=== PATIENT | male | born 1990 | race Caucasian/White ===

== ENCOUNTER 2023-10-24 02:42 | Emergency (ER) | payer OTHER, SELFPAY ==
--- NOTE | 2023-10-24 | ECG_ITS ---
Test Reason : CHEST PAIN Blood Pressure : / mmHG Vent. Rate : 137 BPM Atrial Rate : 137 BPM P-R Int : 116 ms QRS Dur : 082 ms QT Int : 314 ms P-R-T Axes : 060 044 031 degrees QTc Int : 474 ms Sinus tachycardia Otherwise normal ECG When compared with ECG of 20-MAR-2019 04:24, Vent. rate has increased BY 51 BPM Referred By: Generic ED Physician Electronically Signed By:Carlos Eduardo Su
--- NOTE | ~2023-10-24 | XR_ITS ---
EXAMINATION: XR CHEST CLINICAL INFORMATION: Cough, chest pain COMPARISON: None available. TECHNIQUE: Frontal view of the chest was obtained. FINDINGS: The lungs are clear with no focal consolidation. No evidence of pneumothorax, pulmonary edema, or pleural effusions. The cardiomediastinal silhouette is unremarkable. No acute osseous findings. XR/XR chest 1V IMPRESSION: No acute cardiopulmonary findings.
[2023-10-24 02:44] VITALS: BP 198/108; PULSE 147; O2SAT 95
[2023-10-24 02:48] VITALS: BP 116/72; PULSE 135; RESP 21; TEMP 38.1; O2SAT 95; BMI 37.7
[2023-10-24 02:53] VITALS: PULSE 135
[2023-10-24 03:25] LABS: Basophils Absolute Auto 0.1 X10*3/uL (0.0-0.2); Basophils Percent Auto 0.5 % (0-2); Eosinophils Percent Auto 0.2 % (0-4); Hematocrit 41.8 % (42.0-52.0); Hemoglobin 14.4 g/dl (14.0-18.0); Imm Gran Abs Auto 0.07 X10*3/uL (0.00-0.03); Imm Gran Pct Auto 0.4 % (0.0-0.4); Lymphocytes Absolute Auto 1.7 X10*3/uL (1.2-4.9); MANUAL DIFF FLAG NO; Mean Corpuscular HGB Conc 34.4 g/dl (31.0-36.0); Mean Corpuscular Hemoglobin 27.6 pg (27.0-33.0); Mean Corpuscular Volume 80.1 fL (80.0-98.0); Mean Platelet Volume 10.5 fL (9.4-12.4); Monocytes Absolute Auto 0.9 X10*3/uL (0.1-1.2); Neutrophils Absolute Auto 15.6 x10*3/uL (2.0-8.3); Neutrophils Percent Auto 84.9 % (45-73); Platelet Count 337 X10*3/uL (160-400); Red Blood Count 5.22 X10*6/uL (4.60-5.80); Red Cell Distribution Width 12.1 % (11.0-16.0); White Blood Count 18.4 X10*3/uL (4.8-10.8)
--- NOTE | 2023-10-24 03:28 | ED_ITS ---
HPI - Anxiety General Chief Complaint: Arrhythmia/Palpitations Stated Complaint: anxiety Time Seen by Provider: 10/24/23 03:27 Source: patient Mode of arrival: ambulatory Limitations: no limitations History of Present Illness ED Provider: veronica PEREZ narrative: Patient's history of anxiety with increased stresses at home with anxiety taking medication not working comes here for increased anxiety and stress at home had palpitation with anxiety noted to have fever of 100.6 on arrival patient is unaware of this complaining of palpitation with heart rate in 135 range patient also complaining of sore throat for last 2- 3 days with dry cough Related Data Home Medications ?Medication ?Instructions ?Recorded ?Confirmed fluoxetine 40 mg capsule 40 mg PO DAILY 03/11/20 08/14/20 Previous Rx's ?Medication ?Instructions ?Recorded hydroxyzine HCl 50 mg tablet 50 mg PO TID 90 days #270 tabs 08/05/20 clonazepam 1 mg tablet 1 mg PO TID 30 days #90 tabs 09/29/20 amoxicillin 875 mg-potassium 1 tab PO BID #20 tabs 10/24/23 clavulanate 125 mg tablet ibuprofen 600 mg tablet 600 mg PO Q6H PRN fever or pain 10/24/23 #30 tabs Allergies Allergy/AdvReac Type Severity Reaction Status Date / Time No Known Allergies Allergy Verified 10/24/23 02:50 [No Known Allergies*] Review of Systems 2 Review of Systems: Yes all other systems are reviewed and are negative PMFSH Past Medical History Surgical History No pertinent past surgical history Family History Family History Father Depression with anxiety Chronic mental illness Mother Rheumatoid arthritis Maternal Grandmother Arthritis Maternal Grandfather Hypertension Social History Social History Alcohol intake: never Smoked in Last 30 Days: Yes e-Cigarette/Vaping Use: Currently Using Use of substances other than those prescribed or required for medical reasons: No Advance Directives: No Advance Directives Information Provided: Yes Do you have a plan to hurt others: No Plan Physical Exam 2 Vital Signs: Vital Signs: Last Vital Signs Temp 98.2 F 10/24/23 05:18 Pulse 111 H 10/24/23 05:18 Resp 16 10/24/23 05:18 BP 125/75 10/24/23 05:18 Pulse Ox 98 10/24/23 05:18 O2 Del Method Room Air 10/24/23 05:18 BMI result Body Mass Index 37.7 Appearance: Alert. Oriented X3. No acute distress. Anxious Eyes: PERRLA, No Nystagmus ENT: Pharynx erythema+ no exudates. Oral Mucosa moist enlarged tonsils erythematous Neck: Normal inspection. Neck supple. CVS: Normal heart rate and rhythm. Pulses normal. Respiratory: No respiratory distress. Equal air entry bilateral, no wheezing/rales/rhonchi Abdomen: Soft and nontender. Bowel sounds are present, no mass palpable, no CVA tenderness Skin: Skin warm and dry. Normal skin color. Normal skin turgor. Extremities: No lower extremity edema. No calf tenderness Neuro: Oriented X 3. No motor deficit. No sensory deficit.No cerebellar signs , cranial nerves II-XII intact Medications Administered Discontinued Medications Generic Name Dose Route Start Last Admin Trade Name Freq PRN Reason Stop Dose Admin Sodium Chloride 1,000 mls @ 999 mls/hr 10/24/23 03:51 10/24/23 05:09 Ns IV 10/24/23 04:51 Infused .Q1H1M ONE Infusion Ceftriaxone Sodium 1 gm/ 50 mls @ 100 mls/hr 10/24/23 03:59 10/24/23 04:41 Sodium Chloride IV 10/24/23 04:28 Infused ONCE ONE Infusion Sodium Chloride 1,000 mls @ 999 mls/hr 10/24/23 04:56 10/24/23 05:09 Ns IV 10/24/23 05:56 Infused .Q1H1M ONE Infusion Lorazepam 1 mg 10/24/23 03:57 10/24/23 04:05 Lorazepam 2 Mg/Ml Vial IVPUSH 10/24/23 03:58 1 mg ONCE ONE Administration Medical Decision Making Medical Decision Making [facility] Narrative: Patient's anxiety with palpitation odor to have fever with sore throat strep positive with leukocytosis was given Rocephin and fluids in the ER patient also had slightly elevated creatinine of 1.43 will discharge patient home on Augmentin advised to follow with PCP and drink plenty of fluids Differential Diagnosis Differential Diagnoses: The differential diagnosis associated with the presentation includes Anxiety/strep/COVID/flu Lab Data [facility] Lab Attestation statement: I reviewed the patient's lab results. 10/24/23 03:16 10/24/23 03:16 Labs: Lab Results 10/24/23 10/24/23 10/24/23 Range/Units 03:16 03:34 04:10 WBC 18.4 H (4.8-10.8) X10*3/uL RBC 5.22 (4.60-5.80) X10*6/uL Hgb 14.4 (14.0-18.0) g/dl Hct 41.8 L (42.0-52.0) % MCV 80.1 (80.0-98.0) fL MCH 27.6 (27.0-33.0) pg MCHC 34.4 (31.0-36.0) g/dl RDW 12.1 (11.0-16.0) % Plt Count 337 (160-400) X10*3/uL MPV 10.5 (9.4-12.4) fL Immature Gran % (Auto) 0.4 (0.0-0.4) % Neut % (Auto) 84.9 H (45-73) % Lymph % (Auto) 9.0 L (20-40) % [place] % (Auto) 5.0 (2-11) % Eos % (Auto) 0.2 (0-4) % Baso % (Auto) 0.5 (0-2) % Lymph # (Auto) 1.7 (1.2-4.9) X10*3/uL [place] # (Auto) 0.9 (0.1-1.2) X10*3/uL Eos # (Auto) 0.0 (0.0-0.4) X10*3/uL Baso # (Auto) 0.1 (0.0-0.2) X10*3/uL Abs Immat Gran (auto) 0.07 H (0.00-0.03) X10*3/uL Absolute Neuts (auto) 15.6 H (2.0-8.3) x10*3/uL Absolute Nucleated RBC 0.000 (0.0-0.012) X10*3/uL Nucleated RBC % (auto) 0.0 (0.0-0.2) /100WBC PT 14.7 H (11.1-13.3) SEC INR 1.2 H (0.9-1.1) Sodium 138 (135-145) mmol/L Potassium 3.6 (3.3-5.1) mmol/L Chloride 101 (96-108) mmol/L Carbon Dioxide 26 (22-29) mmol/L Anion Gap 15 (12-20) BUN 9 (9-16) mg/dL Creatinine 1.43 H (0.5-1.4) mg/dL Estim Creat Clear Calc 93.9 Estimated GFR 58 Random Glucose 133 H (60-115) mg/dL Lactic Acid 1.3 (0.5-2.0) mmol/L Calcium 9.7 (8.4-10.2) mg/dL Total Bilirubin 1.1 H (0.0-1.0) mg/dL AST 28 (5-37) U/L ALT 37 (0-40) U/L Alkaline Phosphatase 88 (39-117) U/L Troponin I High Sens < 2.7 (<3.5-35.0) ng/L Total Protein 8.7 H (6.5-8.0) g/dL Albumin 4.8 (3.5-5.0) g/dL Influenza Type A (PCR) NEGATIVE (Negative) Influenza Type B (PCR) NEGATIVE (Negative) RSV RNA Qual (PCR) NEGATIVE (Negative) SARS-CoV-2 RNA (RT-PCR) NEGATIVE (Negative) S. pyogenes GrpA DIPTI Positive A (Negative) Discharge Plan Discharge Clinical Impression: JAEL (generalized anxiety disorder), Acute streptococcal pharyngitis Patient Disposition: Home, Self-Care Instructions: Strep Throat (DC), Anxiety (ED) Additional Instructions: Drink plenty of liquids You were slightly dehydrated and were given IV fluids You have strep throat take antibiotic as prescribed Continue take medication for anxiety Follow with PCP if any concerns Prescriptions: New amoxicillin-pot clavulanate 875-125 mg tablet 1 tab PO BID Qty: 20 0RF ibuprofen 600 mg tablet 600 mg PO Q6H PRN (Reason: fever or pain) Qty: 30 0RF No Action fluoxetine 40 mg capsule 40 mg PO DAILY hydroxyzine HCl 50 mg tablet 50 mg PO TID 90 Days Qty: 270 1RF clonazepam 1 mg tablet 1 mg PO TID 30 Days Qty: 90 0RF Interventions: ED Discharge Assessment Last Done: 10/24/23 05:18 Discharge Date/Time: 10/24/23 05:19 Print Language: Tristanian
[2023-10-24 03:32] LABS: INTERNATIONAL NORM RATIO 1.2 (0.9-1.1); Prothrombin Time 14.7 SEC (11.1-13.3)
[2023-10-24 03:36] LABS: Lactic Acid 1.3 mmol/L (0.5-2.0)
[2023-10-24 03:40] LABS: Alanine Aminotransferase 37 U/L (0-40); Albumin Level 4.8 g/dL (3.5-5.0); Alkaline Phosphatase 88 U/L (39-117); Anion Gap 15 (12-20); Aspartate Amino Transferase 28 U/L (5-37); Bilirubin Total 1.1 mg/dL (0.0-1.0); Blood Urea Nitrogen 9 mg/dL (9-16); Calcium 9.7 mg/dL (8.4-10.2); Carbon Dioxide 26 mmol/L (22-29); Chloride 101 mmol/L (96-108); Creatinine Clr Calc Pharmacy 93.9; Estimated Glomerular Filt Rate 58; Glucose Random 133 mg/dL (60-115); Potassium 3.6 mmol/L (3.3-5.1); Sodium 138 mmol/L (135-145); Total Protein 8.7 g/dL (6.5-8.0)
[2023-10-24 03:48] LABS: Troponin-I High Sensitivity < 2.7 ng/L (<3.5-35.0)
[2023-10-24] MEDS: LORazepam 2 MG/ML VIAL 1 MG IVPUSH (04:05)
[2023-10-24] MEDS: cefTRIAXone sodium 1 GM in 0.9 % Sodium Chloride 50 ML IV (04:08)
[2023-10-24] MEDS: 0.9 % Sodium Chloride 1,000 ML 999 ML IV ×2 (04:09→04:30)
[2023-10-24 04:14] LABS: Influenza A PCR NEGATIVE (Negative); Influenza B PCR NEGATIVE (Negative); Resp Syncy Virus RNA Qual PCR NEGATIVE (Negative); SARS COV2 PCR INHOUSE NEGATIVE (Negative)
[2023-10-24 04:19] LABS: IDNOW Serial# 08D9AD1C; Strep A Nucleic Acid Positive (Negative)
[2023-10-24 05:18] VITALS: BP 125/75; PULSE 111; RESP 16; TEMP 36.8; O2SAT 98
== END 2023-10-24 05:19 | disposition home or self-care (01) ==
PROVIDERS: Emergency Provider Internal Medicine
DX: F43.9 Reaction to severe stress, unspecified (principal); J02.0 Streptococcal pharyngitis; I49.9 Cardiac arrhythmia, unspecified; R00.2 Palpitations; F41.9 Anxiety disorder, unspecified; R50.9 Fever, unspecified; R05.9 Cough, unspecified; Z03.818 Encounter for observation for suspected exposure to other biological agents ruled out; Z79.899 Other long term (current) drug therapy
CPT/HCPCS: 0241U; 71045; 80053; 83605; 84484; 85025; 85610; 87040; 87651; 93005; 96361; 96365; 96375; 99284; 99285; J0696; J2060

== ENCOUNTER → 2023-10-24 02:44 | Outpatient (BNV) | payer OTHER, SELFPAY | PROVIDERS: Emergency Provider Internal Medicine; Visit Provider Internal Medicine Cardiovascular Disease | DX: R07.9 Chest pain, unspecified (principal) | CPT/HCPCS: 93010 ==